=== PATIENT | male | born 1985 | race American Indian/Alaskan Native ===

== ENCOUNTER 2018-09-16 14:44 | Emergency (ER) | payer SELFPAY ==
--- NOTE | 2018-09-16 15:15 | Emergency Department Report ---
Blank Doc - Documentation Documentation: This is a 33-year-old male that presents with left proximal medial thigh absce ss. This initial assessment/diagnostic orders/clinical plan/treatment(s) is/are subject to change based on patient's health status, clinical progression and re- assessment by fellow clinical providers in the ED. Further treatment and workup at subsequent clinical providers discretion. Patient/guardians urged not to elope from the ED as their condition may be serious if not clinically assessed and managed. Initial orders include: 1- Patient sent to [facility] for further evaluation and treatment
[2018-09-16 15:18] VITALS: BP 120/69
[2018-09-16] MEDS ORDERED: XYLOCAINE 1% MPF 5 mL INFILTRATI ONE (18:09)
--- NOTE | 2018-09-16 19:40 | Emergency Department Report ---
Abscess Boil HPI - HPI Chief Complaint: Skin/Abscess/Foreign Body Stated Complaint: SPIDER BITE ON (R) LEG Time Seen by Provider: 09/16/18 15:14 Duration: 3 Days Location: Lower Extremity Severity: Moderate History: Yes Pain, Yes Purulent Drainage, No Fever, No Numbness, No Foreign Body, No Previous History, No Insect Bite HPI: This is a 22-year-old female that presents with vaginal ulcer and vaginal discharge. Home Medications: Previous Rx's Medication Instructions Recorded Last Taken Type cephALEXin [Keflex] 500 mg PO Q8HR 10 Days #30 cap 09/16/18 Unknown Rx traMADol [Ultram] 50 mg PO Q6HR PRN #12 tablet 09/16/18 Unknown Rx ED Review of Systems ROS: Stated complaint: SPIDER BITE ON (R) LEG Other details as noted in HPI Constitutional: denies: chills, fever Eyes: denies: eye pain, eye discharge, vision change ENT: denies: ear pain, throat pain Respiratory: denies: cough, shortness of breath, wheezing Cardiovascular: denies: chest pain, palpitations Endocrine: no symptoms reported Gastrointestinal: denies: abdominal pain, nausea, diarrhea Genitourinary: denies: urgency, dysuria Musculoskeletal: denies: back pain, joint swelling, arthralgia Skin: denies: rash, lesions (left inner thigh abscess ) Neurological: denies: headache, weakness, paresthesias Psychiatric: denies: anxiety, depression Hematological/Lymphatic: denies: easy bleeding, easy bruising ED Past Medical Hx - Past Medical History Previous Medical History?: No - Surgical History Additional Surgical History: adenoidectomy - Social History Smoking Status: Never Smoker Substance Use Type: Alcohol - Medications Home Medications: Home Medications Medication Instructions Recorded Confirmed Last Taken Type cephALEXin [Keflex] 500 mg PO Q8HR 10 Days #30 cap 09/16/18 Unknown Rx traMADol [Ultram] 50 mg PO Q6HR PRN #12 tablet 09/16/18 Unknown Rx ED Abscess Boil Physical Exam - Exam General: Left posterior thigh abscess 2x3 cm erythema fluctuant no drainage no fever Vital signs noted. No distress. Alert and acting appropriately. Size: 3 cm Exam: Yes Tenderness, Yes Fluctuance, Yes Surrounding Cellulites/Erythema, Yes Normal Neurologic Exam, Yes Normal Circulation, No Lymphangitis, No Crepitation, No Heart Murmur I & D Note - I & D Note I & D Note: Patient verbalized understanding Left posterior thigh IND with Betadine solution and was treated with 1% lidocaine plain 2 mL incision with 11 blade scalpel 1 straight, loculations broken up with blunt forceps, wound with moderate purulent drainage ,was irrigated with 30 mL of sterile saline, all bleeding controlled ,sterile dressing applied, patient given care instructions ,pt verbalized agreement and understanding of same, pt for dc to home in stable condition. ED Course Vital Signs 09/16/18 15:15 Temperature 98 F Pulse Rate 96 H Respiratory 11 L Rate Blood Pressure 120/69 O2 Sat by Pulse 98 Oximetry Critical care attestation.: If time is entered above; I have spent that time in minutes in the direct care of this critically ill patient, excluding procedure time. ED Medical Decision Making - Medical Decision Making This was a posterior thigh abscess see I&D procedure note, pt for dc to home in stable condition at this time pt with nad, ambulatory to steady gait. ED Disposition Clinical Impression: Abscess of left thigh Disposition: DC-01 TO HOME OR SELFCARE Is pt being admited?: No Does the pt Need Aspirin: No Condition: Stable Instructions: Abscess (ED) Prescriptions: cephALEXin [Keflex] 500 mg PO Q8HR 10 Days #30 cap traMADol [Ultram] 50 mg PO Q6HR PRN #12 tablet PRN Reason: Pain Referrals: [facility] [Outside] - 3-5 Days Forms: Work/School Release Form(ED) Time of Disposition: 19:42
== END 2018-09-16 19:45 | disposition home or self-care (01) ==
LOC: ED 14:44
DX: L02.416 Cutaneous abscess of left lower limb (principal); Z90.49 Acquired absence of other specified parts of digestive tract
CPT/HCPCS: 99282

== ENCOUNTER 2018-09-21 18:14 | Emergency (ER) | payer SELFPAY ==
--- NOTE | 2018-09-21 18:23 | Emergency Department Report ---
Blank Doc - Documentation Documentation: pt states he has had hiccups for the last three days ago no PMHx had previously two years ago and it went away on its on denies hx of acid reflux no PMHx
[2018-09-21] MEDS ORDERED: ALUM-MAG HYDROX-SIMETH 200-200-20MG/5ML PO ONE (18:42)
[2018-09-21] MEDS ORDERED: LIDOCAINE VISCOUS 2% PO ONE (18:42)
[2018-09-21] MEDS ORDERED: PROTONIX IV ONE (18:43)
[2018-09-21] MEDS ORDERED: NACL 0.9% 1000 ML 1,000 ML IV ONE (18:44)
--- NOTE | 2018-09-21 18:48 | Emergency Department Report ---
ED Abdominal Pain HPI - General Chief Complaint: Chest Pain Stated Complaint: CHEST PAIN Time Seen by Provider: 09/21/18 18:21 Source: patient Mode of arrival: Ambulatory Limitations: No Limitations - History of Present Illness Initial Comments: Patient is 33 years old male with no significant past medical history. Patient presented to the ER complaining of epigastric abdominal pain associated with significant hiccup. He stated that his symptoms started 3 days ago after he was treated for skin abscess with Keflex causes him skin rash and for which she received prednisone. Patient denied any fever, chills, nausea, vomiting or diarrhea. MD Complaint: abdominal pain -: days(s) (3) Location: epigastric Radiation: none Migration to: no migration Quality: sharp, burning - Related Data Previous Rx's Medication Instructions Recorded Last Taken Type cephALEXin [Keflex] 500 mg PO Q8HR 10 Days #30 cap 09/16/18 Unknown Rx traMADol [Ultram] 50 mg PO Q6HR PRN #12 tablet 09/16/18 Unknown Rx Allergies Allergy/AdvReac Type Severity Reaction Status Date / Time cephalexin [From Keflex] Allergy Rash Verified 09/21/18 18:15 ED Review of Systems ROS: Stated complaint: CHEST PAIN Other details as noted in HPI Comment: All other systems reviewed and negative Constitutional: denies: chills, fever Respiratory: denies: cough, shortness of breath, SOB with exertion Cardiovascular: denies: chest pain, palpitations Gastrointestinal: abdominal pain, other (hiccup). denies: nausea, vomiting, diarrhea, constipation, hematemesis, melena, hematochezia Musculoskeletal: denies: back pain Neurological: denies: headache, weakness, numbness, paresthesias, confusion Psychiatric: denies: anxiety, depression, auditory hallucinations, visual hallucinations, homicidal thoughts, suicidal thoughts ED Past Medical Hx - Past Medical History Previous Medical History?: No - Surgical History Additional Surgical History: adenoidectomy - Social History Smoking Status: Former Smoker Substance Use Type: None - Medications Home Medications: Home Medications Medication Instructions Recorded Confirmed Last Taken Type cephALEXin [Keflex] 500 mg PO Q8HR 10 Days #30 cap 09/16/18 Unknown Rx traMADol [Ultram] 50 mg PO Q6HR PRN #12 tablet 09/16/18 Unknown Rx ED Physical Exam - General Limitations: No Limitations General appearance: alert, in no apparent distress - Head Head exam: Present: atraumatic, normocephalic, normal inspection - Eye Eye exam: Present: normal appearance, PERRL - ENT ENT exam: Present: normal exam, normal orophraynx, mucous membranes moist - Neck Neck exam: Present: normal inspection, full ROM. Absent: tenderness, meningismus, lymphadenopathy, thyromegaly - Respiratory Respiratory exam: Present: normal lung sounds bilaterally - Cardiovascular Cardiovascular Exam: Present: regular rate, normal rhythm, normal heart sounds - GI/Abdominal GI/Abdominal exam: Present: soft, normal bowel sounds. Absent: distended, tenderness, guarding, rebound, rigid, organomegaly, mass, bruit, pulsatile mass, hernia - Extremities Exam Extremities exam: Present: normal inspection, full ROM, normal capillary refill. Absent: tenderness, pedal edema, joint swelling, calf tenderness - Back Exam Back exam: Present: normal inspection, full ROM. Absent: tenderness, CVA tenderness (R), CVA tenderness (L), muscle spasm, paraspinal tenderness, vertebral tenderness, rash noted - Neurological Exam Neurological exam: Present: alert, oriented X3, CN II-XII intact, normal gait, reflexes normal - Skin Skin exam: Present: warm, intact, normal color ED Course Vital Signs 09/21/18 09/21/18 09/21/18 18:23 18:31 18:46 Temperature 97.9 F Pulse Rate 103 H 106 H Respiratory 18 28 H Rate Blood Pressure 110/80 130/67 130/67 O2 Sat by Pulse 100 100 100 Oximetry 09/21/18 09/21/18 19:00 20:15 Temperature Pulse Rate Respiratory Rate Blood Pressure 130/67 122/58 O2 Sat by Pulse 100 97 Oximetry ED Medical Decision Making - Lab Data Result diagrams: 09/21/18 18:51 09/21/18 18:51 - Medical Decision Making Patient is 33 years old male with no significant past medical history. Patient presented to the ER complaining of epigastric abdominal pain associated with significant hiccup. He stated that his symptoms started 3 days ago after he was treated for skin abscess with Keflex causes him skin rash and for which she received prednisone. Patient denied any fever, chills, nausea, vomiting or diarrhea. Patient received Thorazine 50 IV, Protonix, Mylanta and lidocaine. Patient stated that he is feeling much better. Labs reviewed and is unremarkable. Abdomen x-ray series is negative for acute finding. I advised the patient to discontinue prednisone and to follow-up with [place] in the next 2-3 days and to return to the ER if symptoms are not improved. Critical care attestation.: If time is entered above; I have spent that time in minutes in the direct care of this critically ill patient, excluding procedure time. ED Disposition Clinical Impression: Abdominal pain, Hiccup Disposition: TO HOME OR SELFCARE Is pt being admited?: No Condition: Stable Instructions: Abdominal Pain (ED), Hiccups (ED) Referrals: [facility] [Provider Group] - 3-5 Days
[2018-09-21 19:10] LABS: Basophils # (Auto) 0.1 K/mm3 (0.0-0.1); Basophils % (Auto) 0.7 % (0.0-1.8); Eosinophils % (Auto) 0.3 % (0.0-4.3); Lymphocytes # (Auto) 3.1 K/mm3 (1.2-5.4); Lymphocytes % (Auto) 29.9 % (13.4-35.0); Mean Corpuscular HGB Conc 35 % (32-34); Mean Corpuscular Volume 83 fl (84-94); Monocytes # (Auto) 0.7 K/mm3 (0.0-0.8); Monocytes % (Auto) 6.7 % (0.0-7.3); Platelet Count 412 K/mm3 (140-440); Red Blood Count 4.82 M/mm3 (3.65-5.03); Red Cell Distribution Width 13.7 % (13.2-15.2)
[2018-09-21 19:21] LABS: BUN/Creatinine Ratio 14; Blood Urea Nitrogen 15 mg/dL (9-20); Calcium 9.1 mg/dL (8.4-10.2); Hemolysis Index 20
[2018-09-21 19:25] LABS: Alanine Aminotransferase 23 units/L (7-56); Albumin 4.4 g/dL (3.9-5)
[2018-09-21 19:28] LABS: Bilirubin,Direct < 0.2 mg/dL (0-0.2)
[2018-09-21] MEDS ORDERED: THORAZINE 50 MG in NACL 0.9% 100 ML IV ONE (19:42)
[2018-09-21] MEDS ORDERED: ZOFRAN IV ONE (22:44)
[2018-09-21] MEDS ORDERED: MORPHINE IV ONE (22:44)
[2018-09-21 23:25] VITALS: BP 134/65
--- NOTE | 2018-09-21 23:37 | XRay Report ---
PROCEDURE: XR ABD SERIES W CXR 1V TECHNIQUE: AP portable view of the chest and supine and upright views of the abdomen HISTORY: abdominal pain COMPARISONS: None FINDINGS: The cardiomediastinal silhouette appears normal. The lungs are clear. The bones and soft tissues are unremarkable. IMPRESSION: No evidence of acute cardiopulmonary disease. This document is electronically signed by Radha Gibson MD., Sep 21 2018 11:35:07 PM ET
== END 2018-09-21 23:24 | disposition home or self-care (01) ==
LOC: ED 18:14
DX: R10.13 Epigastric pain (principal); R06.6 Hiccough; Z88.1 Allergy status to other antibiotic agents; Z87.891 Personal history of nicotine dependence
CPT/HCPCS: 36415; 74022; 80048; 80076; 83690; 85025; 96365; 96375; 99284; C9113; J2270; J2405; J3230; J7030